=== PATIENT | male | born 1960 | race Caucasian/White ===

== ENCOUNTER 2016-12-08 07:55 | Emergency (ER) | payer OTHER ==
[2016-12-08] MEDS ORDERED: IBUPROFEN 400 MG TABLET (FP) PO ONE ×2 (08:08→08:10)
--- NOTE | 2016-12-08 08:08 | PDOC ---
History of Present Illness - General Chief Complaint: Injury Stated Complaint: LEFT FOOT PAIN Time Seen by Provider: 12/08/16 08:07 History Source: Patient, Old Records Exam Limitations: No Limitations - History of Present Illness Initial Comments: 12/08/16 08:11 56-year-old male with history of hypothyroid disease presents the emergency Department with complaints of left foot pain that started after he dropped a 10 pound can of spaghetti sauce on his foot while he was wearing a shoe this morning. The patient is able to bear weight on the extremity although he has pain. He has taken no medication for the pain as yet. The pain is localized to the foot and is constant worsened with palpation, movement of the foot/toes and weightbearing. Past History - Past Medical History Allergies/Adverse Reactions: Allergies Allergy/AdvReac Type Severity Reaction Status Date / Time codeine Allergy Verified 12/08/16 08:06 Home Medications: Ambulatory Orders Fluoxetine HCl [Prozac] 60 mg PO DAILY 09/27/14 Synthroid 12/08/16 Psychiatric Problems: Yes - Psycho/Social/Smoking Cessation Hx Anxiety: No Suicidal Ideation: No Smoking History: Never smoked Hx Alcohol Use: Yes (OCCASIONAL) Review of Systems - Review of Systems Able to Perform ROS?: Yes Is the patient limited Romansh proficient: No Constitutional: No: Symptoms Reported HEENTM: No: Symptoms Reported Respiratory: No: Symptoms reported Cardiac (ROS): No: Symptoms Reported ABD/GI: No: Symptoms Reported : No: Symptoms Reported Musculoskeletal: Yes: See HPI Integumentary: No: Symptoms Reported *Physical Exam - Physical Exam Comments: 12/08/16 08:12 GENERAL: Well developed, well nourished. Awake and alert. No acute distress. MUSCULOSKELETAL/EXTREMITIES There is swelling of the left first metatarsal region with erythema and ecchymosis. ROM is limited secondary to pain. There are blisters on the toes that appear chronic in nature. Distal pulses are +1 bilaterally. SKIN: Warm and dry. Normal capillary refill. No rashes. No jaundice. NEUROLOGICAL: Alert, awake, appropriate. Cranial nerves 2-12 intact. Grossly non-focal exam. PSYCHIATRIC: Cooperative. Good eye contact. Appropriate mood and affect. Medical Decision Making - Medical Decision Making 12/08/16 08:14 56 y/o male with pain to the left foot s/p crush injury this morning. DDx includes but is not limited to: fracture, dislocation, contusion, sprain. Plan: 1. Plain films of the left foot 2. Pain management 3. Observe and re-evaluate 12/08/16 09:14 Plain film read by radiology reports a ? deformity of the base of the third metatarsal. I have re-examined the patient and he has no gross bony deformity or tenderness in that area. Gonsalo wrap has been applied. I have advised the patient to elevate the extremity, apply ice and take acetaminophen or ibuprofen for the pain. Ortho follow-up as needed. Return to the ED if sx persist, worsen or new sx arise. *DC/Admit/Observation/Transfer Diagnosis at time of Disposition: Contusion of left foot, Crushing injury - Discharge Dispostion Disposition: HOME Condition at time of disposition: Stable Admit: No - Patient Instructions Printed Discharge Instructions: DI for Contusion Additional Instructions: You have injured your left foot. You may take acetaminophen or ibuprofen as needed for the pain. Put ice on the affected areas for the first 24 hours to decrease the amount of swelling. Follow-up with orthopedics as needed. Return to the Emergency Department if your symptoms persist, worsen or new symptoms arise.
[2016-12-08 08:20] VITALS: BP 150/90; PULSE 83; TEMP 98.1; BMI 35.5
== END 2016-12-08 09:22 | disposition home or self-care (01) ==
LOC: FER 07:55
DX: S90.32XA Contusion of left foot, initial encounter (principal); S97.82XA Crushing injury of left foot, initial encounter; W20.8XXA Other cause of strike by thrown, projected or falling object, initial encounter; Y93.9 Activity, unspecified; Y92.9 Unspecified place or not applicable; E03.9 Hypothyroidism, unspecified
CPT/HCPCS: 73630-TC-LT; 99281-25

== ENCOUNTER 2017-06-03 09:21 | Emergency (ER) | payer OTHER ==
[2017-06-03 09:25] VITALS: BP 158/109; PULSE 82; TEMP 99.1; BMI 37.3
--- NOTE | 2017-06-03 09:37 | PDOC ---
History of Present Illness - General Chief Complaint: Pain, Acute Stated Complaint: LOW BACK PAIN Time Seen by Provider: 06/03/17 09:26 History Source: Patient Exam Limitations: No Limitations - History of Present Illness Initial Comments: 06/03/17 09:33 57 yo male with no significant pmh here with c/o right thigh, hip and low back pain s/p fall yesterday. pt was carrying a big case of cheese, and fell to right. hit his thigh on a cart. does have brusing in area. has been ambulating with pain. also c/o right sided low back pain radiating down leg. no prior injuries. no new numbness or weakness. took advil 600 mg about one hr ago. Past History - Past Medical History Allergies/Adverse Reactions: Allergies Allergy/AdvReac Type Severity Reaction Status Date / Time codeine Allergy Verified 06/03/17 09:22 Home Medications: Ambulatory Orders Fluoxetine HCl [Prozac] 60 mg PO DAILY 09/27/14 Diazepam [Valium] 5 mg PO Q8H PRN #10 tablet MDD 3 06/03/17 Ibuprofen [Motrin -] 600 mg PO TID PRN #60 tablet MDD 3 06/03/17 Psychiatric Problems: Yes Thyroid Disease: Yes - Surgical History Gastric Stapling: Yes - Immunization History Immunization Up to Date: Yes - Suicide/Smoking/Psychosocial Hx Smoking History: Never smoked Have you smoked in the past 12 months: No Hx Alcohol Use: Yes Drug/Substance Use Hx: No Substance Use Type: Alcohol Review of Systems - Review of Systems Constitutional: No: Chills, Diaphoresis HEENTM: No: Eye Pain Respiratory: No: Cough Cardiac (ROS): No: Chest Pain ABD/GI: No: Abdominal Distended Musculoskeletal: Yes: Back Pain, Joint Pain Integumentary: No: Bruising Neurological: No: Headache, Numbness, Weakness All Other Systems: Reviewed and Negative *Physical Exam - Vital Signs Last Vital Signs Temp Pulse Resp BP Pulse Ox 99.1 F 82 16 158/109 98 06/03/17 09:21 06/03/17 09:21 06/03/17 09:21 06/03/17 09:21 06/03/17 09:21 - Physical Exam General Appearance: Yes: Nourished, Appropriately Dressed Neck: positive: Trachea midline Respiratory/Chest: positive: Lungs Clear, Normal Breath Sounds Cardiovascular: positive: Regular Rhythm, Regular Rate, S1, S2. negative: Edema Gastrointestinal/Abdominal: positive: Normal Bowel Sounds, Flat, Soft. negative : Tender Musculoskeletal: positive: Normal Inspection, Other (right lateral thigh with large eccymosis. from at hip knee and ankle. no spinal midline tenderness. paraspinal m ttp at lumbosacral area to right. ). negative: CVA Tenderness Extremity: positive: Normal Capillary Refill, Normal Inspection (eccymosis right lateral thigh), Normal Range of Motion Integumentary: positive: Normal Color, Dry, Warm Neurologic: positive: Fully Oriented, Alert, Normal Mood/Affect, Motor Strength 5/5, Other (sensation intact bilat lower ext.) ED Treatment Course - RADIOLOGY Radiology Studies Ordered: Category Date Time Status FEMUR-RIGHT [RAD] Stat Radiology 06/03/17 10:00 Ordered HIP & PELVIS-RIGHT [RAD] Stat Radiology 06/03/17 09:32 Ordered 06/03/17 10:21 xray femure no fx, pelvis negative. right hip no fx. Medical Decision Making - Medical Decision Making 06/03/17 09:37 likley msk back strain, and contusion hip/ thigh. plan xray r/o fx. pain control , muscle relaxants. and dc home. pt declined tylenol, is driving, will send rx for muscle relaxers. 06/03/17 10:20 xrays negative. dc home wtih rx for valium. and ibuprofen. *DC/Admit/Observation/Transfer Diagnosis at time of Disposition: Low back sprain, Contusion, hip and thigh - Discharge Dispostion Disposition: HOME Condition at time of disposition: Improved - Prescriptions Prescriptions: Ibuprofen [Motrin -] 600 mg PO TID PRN #60 tablet MDD 3 PRN Reason: Pain Diazepam [Valium] 5 mg PO Q8H PRN #10 tablet MDD 3 PRN Reason: Pain - Referrals Referrals: Cong Ryan [Primary Care Provider] - - Patient Instructions Printed Discharge Instructions: Contusion, DI for Back Strain or Sprain Additional Instructions: you can take ibuprofen 600 mg every 8 hrs as needed for pain. you can also take valium 5 mg every 8 hours as needed for muscle spasm. do not mix this medication with other sedating medications or alcohol, and do not drive for 8 hr after taking the medication. return for any concerns or complaints, or new weakness or numbness. follow up with your doctor as needed. call to schedule. no heavy lifting for one week.
== END 2017-06-03 10:29 | disposition home or self-care (01) ==
LOC: FER 09:21
DX: M54.5 Low back pain (principal); S70.11XA Contusion of right thigh, initial encounter; S70.01XA Contusion of right hip, initial encounter; W20.8XXA Other cause of strike by thrown, projected or falling object, initial encounter; Y93.89 Activity, other specified; Y92.9 Unspecified place or not applicable; F99 Mental disorder, not otherwise specified; E07.9 Disorder of thyroid, unspecified
CPT/HCPCS: 73523-TC; 73552-TC-RT; 99282-25